=== PATIENT | male | born 1980 | race Caucasian/White ===

== ENCOUNTER 2017-03-27 17:04 | Emergency (ER) | payer OTHER ==
[~2017-03-27] VITALS: Ht 188 cm; Wt 99.8 kg
[~2017-03-27 17:04] MED LIST: ACET325; ACET325 PO; BACL10 PO; BISA10S PR; BUPR100 PO; BUPROPION HCL 100 MG PO; Baclofen10 MG PO; CHOL10002 PO; COPAXONE; CVS DISPOSABLE399 ML PR; Calcium + Vita1 EACH; Calcium 600 +1 EAC1 PO; Chloraseptic177 ML MM; Cipro500 MG PO; DIPH50 PO; DOCU100 PO; DOXY100T53 PO; DULO30 PO; ERGO50000 PO; FLUO10 PO; GAVILAX17 GM PO; GUAI600T33 PO; HYDR1TAB94 PO; Hair, Skin & N1 EACH PO; IBUP400 PO; IBUPROFEN200 MG PO; LMTHF-PYRIDOXI1 EACH PO; MECL25 PO; METAMUCIL PO; MIRALAX119 GM PO; MULVITB PO; Metamucil Smooth1 EA PO; Milk Of Ma400 MG/5 M; Milk Of Ma400 MG/5 M PO; NYST100TC TOP; NYSTRITC TOP; ONDA4 PO; ONDA4ODT MM; OSEL75CA PO; OXYB5 PO; PSYL5.85P PO; Senna8.6 MG PO; [UNRECOGNIZED DRUG - OTHER]; [UNRECOGNIZED DRUG - OTHER]
[2017-03-27] MEDS ORDERED: BISA10S PR (17:27)
[2017-03-27] MEDS ORDERED: Feverall650 MG PR (17:29)
[2017-03-27] MEDS ORDERED: 8HR ARTHRITIS650 M1 PO (17:39)
[2017-03-27] MEDS ORDERED: CHOL10002 PO (17:40)
[2017-03-27] MEDS ORDERED: FOLI1 PO (17:41)
[2017-03-27] MEDS ORDERED: XARELTO15 MG PO ×2 (19:11→19:16)
== END 2017-03-27 19:49 | disposition home or self-care (01) ==
LOC: ER 17:04
DX: I82.411 Acute embolism and thrombosis of right femoral vein (principal); I82.431 Acute embolism and thrombosis of right popliteal vein; I82.441 Acute embolism and thrombosis of right tibial vein; Z88.8 Allergy status to other drugs, medicaments and biological substances; Z88.5 Allergy status to narcotic agent; Z79.899 Other long term (current) drug therapy; Z79.2 Long term (current) use of antibiotics; F32.9 Major depressive disorder, single episode, unspecified; Z87.891 Personal history of nicotine dependence
CPT/HCPCS: 93971; 99284

== ENCOUNTER 2017-03-29 01:07 | Emergency (ER) | payer OTHER ==
[~2017-03-29] VITALS: Ht 185.4 cm; Wt 99.8 kg
[~2017-03-29 01:07] MED LIST changes: +8HR ARTHRITIS650 M1 PO; +FOLI1 PO; +Feverall650 MG PR; +XARELTO15 MG PO
== END 2017-03-29 01:19 | disposition home or self-care (01) ==
LOC: ER 01:07
DX: I82.411 Acute embolism and thrombosis of right femoral vein (principal); I82.431 Acute embolism and thrombosis of right popliteal vein; I82.441 Acute embolism and thrombosis of right tibial vein
CPT/HCPCS: 99283

== ENCOUNTER → 2017-06-24 | Outpatient (CLI) | payer OTHER ==
[~2017-06-24] MED LIST changes: -Chloraseptic177 ML MM; -GAVILAX17 GM PO; +LAVAP17G PO; +MILK OF MAGNESIA CON PO; -Metamucil Smooth1 EA PO; -Milk Of Ma400 MG/5 M PO; -ONDA4 PO; +ONDA4ODT; -OXYB5 PO; +OXYB5ER PO; +[UNRECOGNIZED DRUG - OTHER] PO
[2017-06-24 21:41] LABS: Bilirubin, Urine Neg (Neg); Blood, Urine 3+ (Neg); Glucose Qualitative, Urine Neg (Neg); Ketones, Urine Neg (Neg); Leukocyte Esterase, Urine 3+ (Neg); Nitrite, Urine Neg (Neg); Protein, Urine Neg (Neg); Urobilinogen, Urine NORM (Normal)
[2017-06-24 21:50] LABS: Color, Urine Pale Yellow (P-Yellow)
[2017-06-24 21:51] LABS: Amorphous Light (0-Heavy); Appearance, Urine Clear (Clear); Bacteria Few /hpf; Red Blood Cells, Urine Rare /hpf (0-2); Squamous Epithelial Cells Not Seen /hpf (Few)
== END ==
LOC: EDSTATUS 14:46 → LAB RH 21:28
PROVIDERS: Registered Nurse
DX: N39.0 Urinary tract infection, site not specified (principal)
CPT/HCPCS: 81001; 87086

== ENCOUNTER → 2017-07-02 | Outpatient (CLI) | payer OTHER ==
[2017-07-02 21:01] LABS: Source, Urine Clean Catch
[2017-07-02 21:12] LABS: Appearance, Urine Hazy (Clear); Bilirubin, Urine Neg (Neg); Blood, Urine 3+ (Neg); Color, Urine Pale Yellow (P-Yellow); Glucose Qualitative, Urine Neg (Neg); Ketones, Urine Neg (Neg); Leukocyte Esterase, Urine 3+ (Neg); Nitrite, Urine Pos (Neg); Protein, Urine Neg (Neg); Urobilinogen, Urine NORM (Normal)
[2017-07-02 21:13] LABS: Amorphous Light (0-Heavy); Bacteria Mod /hpf; Red Blood Cells, Urine 0-2 /hpf (0-2); Squamous Epithelial Cells Not Seen /hpf (Few)
== END ==
LOC: EDSTATUS 11:08 → LAB RH 20:59
PROVIDERS: Registered Nurse
DX: N39.0 Urinary tract infection, site not specified (principal)
CPT/HCPCS: 81001; 87086

== ENCOUNTER 2017-09-11 14:06 | Emergency (ER) | payer OTHER ==
[~2017-09-11] VITALS: Ht 185.4 cm; Wt 107.5 kg
[2017-09-11 15:32] LABS: International Normalized Ratio 3.13; Prothrombin Time Results 30.2 Sec (9.7-11.5)
== END 2017-09-11 17:40 | disposition home or self-care (01) ==
LOC: ER 14:06
PROVIDERS: Emergency Medicine
DX: S01.01XA Laceration without foreign body of scalp, initial encounter (principal); S50.02XA Contusion of left elbow, initial encounter; S50.01XA Contusion of right elbow, initial encounter; S80.02XA Contusion of left knee, initial encounter; S80.01XA Contusion of right knee, initial encounter; S00.83XA Contusion of other part of head, initial encounter; W17.89XA Other fall from one level to another, initial encounter; F32.9 Major depressive disorder, single episode, unspecified; Z87.891 Personal history of nicotine dependence; Z88.5 Allergy status to narcotic agent; Z88.8 Allergy status to other drugs, medicaments and biological substances; Z79.2 Long term (current) use of antibiotics; Z79.899 Other long term (current) drug therapy; Z79.891 Long term (current) use of opiate analgesic
CPT/HCPCS: 12002; 36415; 70450; 72125; 73610; 85610; 90471; 90714; 96374; 96375; 99284; J2060; J2405; J3010

== ENCOUNTER 2017-09-25 12:32 | Emergency (ER) | payer OTHER ==
[~2017-09-25] VITALS: Ht 185.4 cm; Wt 107.5 kg
[~2017-09-25 12:32] MED LIST changes: +Chloraseptic177 ML MM; +GAVILAX17 GM PO; -LAVAP17G PO; -MILK OF MAGNESIA CON PO; +Metamucil Smooth1 EA PO; +Milk Of Ma400 MG/5 M PO; +ONDA4 PO; -ONDA4ODT; +OXYB5 PO; -OXYB5ER PO; -[UNRECOGNIZED DRUG - OTHER] PO
[2017-09-25] MEDS ORDERED: CYAN500 PO (14:05)
[2017-09-25] MEDS ORDERED: PERIDEX15 ML MM (14:09)
[2017-09-25] MEDS ORDERED: GABA100 PO (14:15)
[2017-09-25] MEDS ORDERED: TOPICAINE 5113 GM TOP (14:19)
[2017-09-25] MEDS ORDERED: WARF6 PO (14:23)
[2017-09-25] MEDS ORDERED: Aspercreme He70.8 GM TOP (14:27)
[2017-09-25] MEDS ORDERED: NYSTATIN TOP (14:29)
[2017-09-25] MEDS ORDERED: NYSTRITC TOP (14:30)
[2017-09-25 15:09] LABS: BASOPHILS ABSOLUTE AUTO 0.07 K/mm3 (0.00-0.23); BASOPHILS PERCENT AUTO 1 % (0-2); EOSINOPHILS ABSOLUTE AUTO 0.18 K/mm3 (0.00-0.68); EOSINOPHILS PERCENT AUTO 2 % (0-6); Hematocrit 40.7 % (37.0-53.0); Hemoglobin 13.6 g/dL (13.5-17.5); IMMATURE GRAN ABSOLUTE AUTO 0.02 K/mm3 (0.00-0.10); IMMATURE GRAN PERCENT AUTO 0 % (0-1); LYMPHOCYTES ABSOLUTE AUTO 2.58 K/mm3 (0.84-5.20); LYMPHOCYTES PERCENT AUTO 31 % (21-46); MONOCYTES ABSOLUTE AUTO 0.53 K/mm3 (0.16-1.47); MONOCYTES PERCENT AUTO 6 % (4-13); Mean Corpuscular HGB 29.2 pg (26.0-34.0); Mean Corpuscular HGB Conc 33.4 g/dL (31.5-36.5); Mean Corpuscular Volume 88 fL (80-100); Mean Platelet Volume 9.6 fL (9.1-12.4); NEUTROPHILS ABSOLUTE AUTO 4.99 K/mm3 (1.96-9.15); NEUTROPHILS PERCENT AUTO 60 % (41-73); Platelet Count 348 K/mm3 (150-400); RDW Coefficient Variation 14.1 % (11.7-14.2); RDW Standard Deviation 45.1 fL (35.1-46.3); Red Blood Cell Count 4.65 M/mm3 (4.30-5.90); White Blood Cell Count 8.37 K/mm3 (4.00-11.30)
[2017-09-25 15:21] LABS: International Normalized Ratio 1.24; Prothrombin Time Results 12.6 Sec (9.7-11.5)
[2017-09-25 15:29] LABS: Alanine Aminotransfer (ALT/SGP 17 U/L (12-78); Albumin, Blood 3.2 g/dL (3.4-5.0); Albumin/Globulin Ratio 0.8 (0.8-1.8); Alk Phos 211 U/L (50-136); Anion Gap 8 mmol/L (6-16); Aspartate Aminotrans (AST/SGOT 15 U/L (12-37); Bilirubin, Total 0.6 mg/dL (0.1-1.0); Blood Urea Nitrogen 7 mg/dL (8-24); Bun/Creatinine Ratio 13.6 (12.0-20.0); CO2, Blood 29 mmol/L (21-32); Calcium, Blood 8.9 mg/dL (8.5-10.1); Chloride, Blood 106 mmol/L (98-108); Creatinine, Blood 0.52 mg/dL (0.60-1.20); Globulin, Blood 4.2 g/dL (2.2-4.0); Glomerular Filtration Rate >60 (60-); Glucose, Blood 83 mg/dL (70-99); Potassium, Blood 3.8 mmol/L (3.5-5.5); Sodium, Blood 143 mmol/L (136-145); Total Protein, Blood 7.4 g/dL (6.4-8.2)
[2017-09-25] MEDS ORDERED: Motion Sickness25 M5 PO (16:33)
== END 2017-09-25 19:57 | disposition home or self-care (01) ==
LOC: ER 12:32
PROVIDERS: Physician Assistant
DX: F07.81 Postconcussional syndrome (principal); H81.10 Benign paroxysmal vertigo, unspecified ear; F32.9 Major depressive disorder, single episode, unspecified; Z88.8 Allergy status to other drugs, medicaments and biological substances; Z88.5 Allergy status to narcotic agent; Z79.899 Other long term (current) drug therapy; Z87.891 Personal history of nicotine dependence
CPT/HCPCS: 36415; 70450; 80053; 85025; 85610; 99285-25

== ENCOUNTER 2018-07-02 17:58 | Emergency (ER) | payer OTHER ==
[~2018-07-02] VITALS: Ht 185.4 cm; Wt 104.3 kg
[~2018-07-02 17:58] MED LIST changes: +Aspercreme He70.8 GM TOP; +CYAN500 PO; +GABA100 PO; +Motion Sickness25 M5 PO; +NYSTATIN TOP; +PERIDEX15 ML MM; +TOPICAINE 5113 GM TOP; +WARF6 PO
[2018-07-02 19:15] LABS: BASOPHILS ABSOLUTE AUTO 0.04 K/mm3 (0.00-0.23); BASOPHILS PERCENT AUTO 1 % (0-2); EOSINOPHILS ABSOLUTE AUTO 0.09 K/mm3 (0.00-0.68); EOSINOPHILS PERCENT AUTO 1 % (0-6); Hematocrit 47.5 % (37.0-53.0); Hemoglobin 15.8 g/dL (13.5-17.5); IMMATURE GRAN ABSOLUTE AUTO 0.02 K/mm3 (0.00-0.10); IMMATURE GRAN PERCENT AUTO 0 % (0-1); LYMPHOCYTES ABSOLUTE AUTO 1.29 K/mm3 (0.84-5.20); LYMPHOCYTES PERCENT AUTO 20 % (21-46); MONOCYTES ABSOLUTE AUTO 0.69 K/mm3 (0.16-1.47); MONOCYTES PERCENT AUTO 11 % (4-13); Mean Corpuscular HGB 29.2 pg (26.0-34.0); Mean Corpuscular HGB Conc 33.3 g/dL (31.5-36.5); Mean Corpuscular Volume 88 fL (80-100); Mean Platelet Volume 10.4 fL (9.1-12.4); NEUTROPHILS ABSOLUTE AUTO 4.29 K/mm3 (1.96-9.15); NEUTROPHILS PERCENT AUTO 67 % (41-73); Platelet Count 248 K/mm3 (150-400); RDW Coefficient Variation 14.9 % (11.7-14.2); RDW Standard Deviation 47.8 fL (35.1-46.3); Red Blood Cell Count 5.42 M/mm3 (4.30-5.90); White Blood Cell Count 6.42 K/mm3 (4.00-11.30)
[2018-07-02] MEDS ORDERED: INULIN PO (19:20)
[2018-07-02] MEDS ORDERED: GAVILAX17 GM PO (19:21)
[2018-07-02] MEDS ORDERED: PROHEAL (19:22)
[2018-07-02] MEDS ORDERED: GABA300 PO (19:23)
[2018-07-02] MEDS ORDERED: BIOTENE PO (19:23)
[2018-07-02] MEDS ORDERED: CLOBET30L TOP (19:25)
[2018-07-02] MEDS ORDERED: GABA100 PO (19:26)
[2018-07-02] MEDS ORDERED: ACET325 PO (19:28)
[2018-07-02] MEDS ORDERED: WARF6 PO (19:29)
[2018-07-02 19:35] LABS: Alanine Aminotransfer (ALT/SGP 27 U/L (12-78); Albumin, Blood 3.2 g/dL (3.4-5.0); Albumin/Globulin Ratio 0.7 (0.8-1.8); Alk Phos 179 U/L (50-136); Anion Gap 5 mmol/L (6-16); Aspartate Aminotrans (AST/SGOT 28 U/L (12-37); Bilirubin, Total 0.3 mg/dL (0.1-1.0); Blood Urea Nitrogen 8 mg/dL (8-24); Bun/Creatinine Ratio 13.2 (12.0-20.0); CO2, Blood 30 mmol/L (21-32); Calcium, Blood 8.9 mg/dL (8.5-10.1); Chloride, Blood 101 mmol/L (98-108); Globulin, Blood 4.6 g/dL (2.2-4.0); Glomerular Filtration Rate >60 (60-); Glucose, Blood 97 mg/dL (70-99); Potassium, Blood 4.2 mmol/L (3.5-5.5); Sodium, Blood 136 mmol/L (136-145); Total Protein, Blood 7.8 g/dL (6.4-8.2)
[2018-07-02 19:41] LABS: Source, Urine Clean Catch
[2018-07-02 19:45] LABS: Appearance, Urine Cloudy (Clear); Bilirubin, Urine Neg (Neg); Blood, Urine 4+ (Neg); Color, Urine Yellow (P-Yellow); Glucose Qualitative, Urine Neg (Neg); Ketones, Urine 1+ (Neg); Leukocyte Esterase, Urine 3+ (Neg); Nitrite, Urine Pos (Neg); Protein, Urine 2+ (Neg); Urobilinogen, Urine NORM (Normal)
[2018-07-02 19:54] LABS: Bacteria Many /hpf; Squamous Epithelial Cells Not Seen /hpf (Few)
[2018-07-02 20:09] LABS: Influenza A Negative (NEGATIVE); Influenza B Negative (NEGATIVE)
[2018-07-02] MEDS ORDERED: Bactrim 400-801 EACH PO (20:15)
[2018-07-02] MEDS ORDERED: CEFD300 PO (20:15)
== END 2018-07-02 22:15 | disposition home or self-care (01) ==
LOC: ER 17:58
PROVIDERS: Emergency Medicine
DX: N39.0 Urinary tract infection, site not specified (principal); F32.9 Major depressive disorder, single episode, unspecified; G35 Multiple sclerosis; Z86.718 Personal history of other venous thrombosis and embolism; Z88.8 Allergy status to other drugs, medicaments and biological substances; Z79.899 Other long term (current) drug therapy; Z79.01 Long term (current) use of anticoagulants
CPT/HCPCS: 36415; 71045; 80053; 81001; 83605; 85025; 87086; 87804; 93005; 93010; 96361; 96365; 99284-25; J0692; J0696; J7030

== ENCOUNTER 2018-07-23 08:43 | Inpatient (IN) | payer OTHER ==
[~2018-07-23] VITALS: Ht 190.5 cm; Wt 104.8 kg
[~2018-07-23 08:43] MED LIST changes: -Aspercreme He70.8 GM TOP; +BENADRYL25 MG PO; +BIOTENE PO; -Baclofen10 MG PO; +Bactrim 400-801 EACH PO; +CEFD300 PO; +CLOBET30L TOP; -DIPH50 PO; +GABA300 PO; -GUAI600T33 PO; +METAMUCIL660 GM PO; +MUCOSA400 MG PO; -NYSTATIN TOP; +PROHEAL; +WARF3 PO
[2018-07-23 09:18] LABS: BASOPHILS ABSOLUTE AUTO 0.05 K/mm3 (0.00-0.23); BASOPHILS PERCENT AUTO 0 % (0-2); EOSINOPHILS ABSOLUTE AUTO 0.02 K/mm3 (0.00-0.68); EOSINOPHILS PERCENT AUTO 0 % (0-6); Hematocrit 53.2 % (37.0-53.0); Hemoglobin 17.4 g/dL (13.5-17.5); IMMATURE GRAN ABSOLUTE AUTO 0.06 K/mm3 (0.00-0.10); IMMATURE GRAN PERCENT AUTO 0 % (0-1); LYMPHOCYTES ABSOLUTE AUTO 1.36 K/mm3 (0.84-5.20); LYMPHOCYTES PERCENT AUTO 10 % (21-46); MONOCYTES ABSOLUTE AUTO 0.52 K/mm3 (0.16-1.47); MONOCYTES PERCENT AUTO 4 % (4-13); Mean Corpuscular HGB 28.9 pg (26.0-34.0); Mean Corpuscular HGB Conc 32.7 g/dL (31.5-36.5); Mean Corpuscular Volume 88 fL (80-100); Mean Platelet Volume 10.4 fL (9.1-12.4); NEUTROPHILS PERCENT AUTO 85 % (41-73); Platelet Count 310 K/mm3 (150-400); RDW Coefficient Variation 14.6 % (11.7-14.2); RDW Standard Deviation 46.8 fL (35.1-46.3); Red Blood Cell Count 6.03 M/mm3 (4.30-5.90); White Blood Cell Count 13.41 K/mm3 (4.00-11.30)
[2018-07-23 09:34] LABS: Alanine Aminotransfer (ALT/SGP 86 U/L (12-78); Albumin, Blood 3.2 g/dL (3.4-5.0); Albumin/Globulin Ratio 0.7 (0.8-1.8); Alk Phos 224 U/L (50-136); Anion Gap 6 mmol/L (6-16); Aspartate Aminotrans (AST/SGOT 160 U/L (12-37); Bilirubin, Total 1.2 mg/dL (0.1-1.0); Blood Urea Nitrogen 11 mg/dL (8-24); Bun/Creatinine Ratio 21.6 (12.0-20.0); CO2, Blood 22 mmol/L (21-32); Calcium, Blood 10.9 mg/dL (8.5-10.1); Chloride, Blood 104 mmol/L (98-108); Creatinine, Blood 0.51 mg/dL (0.60-1.20); Globulin, Blood 4.6 g/dL (2.2-4.0); Glomerular Filtration Rate >60 (60-); Glucose, Blood 104 mg/dL (70-99); Potassium, Blood 5.2 mmol/L (3.5-5.5); Sodium, Blood 132 mmol/L (136-145); Total Protein, Blood 7.8 g/dL (6.4-8.2)
[2018-07-23 09:37] LABS: PCO2 Arterial 45.7 mmHg (35-45); PO2 Arterial 143 mmHg (80-100); pH Blood Arterial 7.36 (7.35-7.45)
[2018-07-23 09:48] LABS: Source, Urine Urostomy Bag
[2018-07-23 10:07] LABS: Blood, Urine 2+ (Neg); Glucose Qualitative, Urine Neg (Neg); Ketones, Urine 2+ (Neg); Leukocyte Esterase, Urine 2+ (Neg); Nitrite, Urine Pos (Neg); Protein, Urine 3+ (Neg); Specific Gravity, Urine 1.025 (1.003-1.022); Urobilinogen, Urine 4+ (Normal)
[2018-07-23 10:24] LABS: Appearance, Urine Cloudy (Clear); Bilirubin, Urine 2+ (Neg); Color, Urine Amber (P-Yellow)
[2018-07-23 10:30] LABS: Bacteria Many /hpf; Squamous Epithelial Cells Not Seen /hpf (Few)
[2018-07-23 10:31] LABS: Amorphous Mod (0-Heavy); Uric Acid Crystals Few /hpf
[2018-07-23] MEDS ORDERED: VITAMIN D31000 UNIT PO (10:31)
[2018-07-23] MEDS ORDERED: Norco 5-325 Ta1 EACH PO (10:33)
[2018-07-23 10:39] LABS: U Amphetamine Screen Not Detected; U Barbituate Screen Not Detected; U Benzodiazapine Screen Not Detected; U Cocaine Screen Not Detected; U Methamphetamine Screen Not Detected
[2018-07-23 10:40] LABS: U Buprenorphine Screen Not Detected; U Cannabinoids Screen Not Detected; U Methadone Screen Not Detected; U Opiates Screen Not Detected; U Oxycodone Screen Not Detected; U Phencyclidine Screen Not Detected; U Propoxyphene Screen Not Detected
[2018-07-23 11:03] LABS: International Normalized Ratio 1.98; Prothrombin Time Results 19.7 Sec (9.7-11.5)
[2018-07-23] MEDS ORDERED: WARF6 PO (15:13)
[2018-07-23] MEDS ORDERED: Aspercreme He70.8 GM TOP (15:16)
[2018-07-23] MEDS ORDERED: NYSTRITC TOP (15:17)
[2018-07-23] MEDS ORDERED: NYSTATIN TOP (15:17)
[2018-07-23] MEDS ORDERED: BACL20 PO (15:18)
[2018-07-23] MEDS ORDERED: Artificial Tea1 EACH BOTHEYES (15:20)
[2018-07-23] MEDS ORDERED: MOTION RELIEF25 MG PO (15:23)
[2018-07-23] MEDS ORDERED: Triamcinolone A15 GM TOP (15:25)
[2018-07-23] MEDS ORDERED: ATHLETE'S FOO35.4 GM TOP (15:25)
--- NOTE | 2018-07-23 21:00 | NUR ---
ADMIT PT ARRIVED TO ICU 6 AT 1935 VIA ER BED. PT IS DROWSEY AND SPEECH IS SLURRED, BUT PT AROUSES TO VERBAL STIMULI. PT IS ALERT AND ORIENTED TO PLACE AND EVENT. PT WITH ADVANCED MS AND QUADRAPLEGIA. PT IS ABLE TO MOVE HEAD AND NECK ONLY. SENSATION INTACT THROUGHOUT. CONTRACTURES TO BILAT HANDS AND FEET NOTED. PT WITH NASAL TRUMPET IN PLACE WITH 4L O2 NC UPON ARRIVAL. PT WITH COPIOUS THICK ORAL SECRETIONS. ORAL CARE PERFORMED. PT WITH GAG PRESENT AND MINIMAL/VERY WEAK COUGH. PT QUICKLY FALLS BACK TO SLEEP WITH SNORING RESPIRATIONS. PT TOLERATING NASAL TRUMPET WELL, WILL LEAVE IN PLACE AT THIS TIME. VITAL SIGNS STABLE, SPO2 >94%. 22G IV IN R FOOT INFUSING UPON ARRIVAL. 20G IV TO RAC ESTABLISHED AT THIS TIME, NS INFUSING AT 200 ML/HR. PT WITH SUPRA PUBIC CULLEN IN PLACE DRAINING DARK CARLOS. WILL CONTINUE TO MONITOR.
[2018-07-24 04:40] LABS: BASOPHILS ABSOLUTE AUTO 0.04 K/mm3 (0.00-0.23); BASOPHILS PERCENT AUTO 0 % (0-2); EOSINOPHILS ABSOLUTE AUTO 0.07 K/mm3 (0.00-0.68); EOSINOPHILS PERCENT AUTO 0 % (0-6); Hematocrit 47.3 % (37.0-53.0); Hemoglobin 15.5 g/dL (13.5-17.5); IMMATURE GRAN ABSOLUTE AUTO 0.07 K/mm3 (0.00-0.10); IMMATURE GRAN PERCENT AUTO 0 % (0-1); LYMPHOCYTES PERCENT AUTO 11 % (21-46); MONOCYTES ABSOLUTE AUTO 1.39 K/mm3 (0.16-1.47); MONOCYTES PERCENT AUTO 8 % (4-13); Mean Corpuscular HGB 29.1 pg (26.0-34.0); Mean Corpuscular HGB Conc 32.8 g/dL (31.5-36.5); Mean Corpuscular Volume 89 fL (80-100); Mean Platelet Volume 10.4 fL (9.1-12.4); NEUTROPHILS ABSOLUTE AUTO 13.84 K/mm3 (1.96-9.15); NEUTROPHILS PERCENT AUTO 80 % (41-73); Platelet Count 345 K/mm3 (150-400); RDW Coefficient Variation 14.6 % (11.7-14.2); RDW Standard Deviation 47.6 fL (35.1-46.3); Red Blood Cell Count 5.32 M/mm3 (4.30-5.90); White Blood Cell Count 17.21 K/mm3 (4.00-11.30)
[2018-07-24 05:00] LABS: Alanine Aminotransfer (ALT/SGP 68 U/L (12-78); Albumin/Globulin Ratio 0.7 (0.8-1.8); Alk Phos 167 U/L (50-136); Anion Gap 7 mmol/L (6-16); Aspartate Aminotrans (AST/SGOT 48 U/L (12-37); Bilirubin, Total 0.5 mg/dL (0.1-1.0); Blood Urea Nitrogen 9 mg/dL (8-24); Bun/Creatinine Ratio 14.3 (12.0-20.0); CO2, Blood 27 mmol/L (21-32); Calcium, Blood 9.1 mg/dL (8.5-10.1); Chloride, Blood 105 mmol/L (98-108); Creatinine, Blood 0.63 mg/dL (0.60-1.20); Globulin, Blood 4.3 g/dL (2.2-4.0); Glomerular Filtration Rate >60 (60-); Glucose, Blood 96 mg/dL (70-99); Potassium, Blood 4.2 mmol/L (3.5-5.5); Sodium, Blood 139 mmol/L (136-145); Total Protein, Blood 7.3 g/dL (6.4-8.2)
[2018-07-24 05:41] LABS: Source, Urine Catheter
[2018-07-24 05:44] LABS: Blood, Urine 5+ (Neg); Glucose Qualitative, Urine Neg (Neg); Ketones, Urine 4+ (Neg); Leukocyte Esterase, Urine 1+ (Neg); Nitrite, Urine Pos (Neg); Protein, Urine 2+ (Neg); Urobilinogen, Urine 1+ (Normal)
[2018-07-24 05:51] LABS: Bilirubin, Urine 1+ (Neg)
[2018-07-24 05:53] LABS: Appearance, Urine Hazy (Clear); Color, Urine Amber (P-Yellow)
[2018-07-24 05:57] LABS: Amorphous Mod (0-Heavy); Bacteria Mod /hpf; Hyaline Casts 0-2 /lpf (0-2); Red Blood Cells, Urine 25-50 /hpf (0-2); Squamous Epithelial Cells Not Seen /hpf (Few)
--- NOTE | 2018-07-24 06:02 | NUR ---
SHIFT SUMMARY NO ACUTE CHANGES THIS SHIFT. PT HAS REMAINED ALERT AND ORIENTED WHEN AWAKE. PT SPEECH REMAINS SLURRED/MUMBLED. NO CHANGES TO SENSATION OR MOVEMENT OF EXTREMITIES. NASAL TRUMPET REMAINS IN PLACE WITH O2 NC TITRATED DOWN TO 2L. VITAL SIGNS HAVE REMAINED STABLE. NS INFUSING AT 150 ML/HR. SUPRA PUBIC CATHETER REPLACED WITH NEW ONE, UA SENT. PT REQUIRING FREQUENT ORAL SUCTION. WILL CONTINUE TO MONITOR AND REPORT OFF TO ONCOMING RN.
--- NOTE | 2018-07-24 08:00 | NUR ---
Recieved report from Lucas ZHU. Patient on right side with HOB at >30 degrees. He is alert and oriented and speech slurred at low tones and is understandable. He is on 2L O2 via NC and has NPA in right nares and sats 98%. Placed and RA to wean off O2 and will reevaluate. He has supra pubic cath on LQ dressing C/D/I and draining to gravity. He has 22ga IV in right foot and is flushed and SL'd. He also has 18ga IV in LFA dressing intact and site WNL's and is infusing NS at 150ml/hr. He has yesy sense of humar and is appropriate with care.
[2018-07-24 08:51] LABS: International Normalized Ratio 4.91
--- NOTE | 2018-07-24 09:30 | NUR ---
Patient tolerated am meds in chocolate pudding with no signs of aspiration. He request constant positioning of extremities for comfort. He contimues on RA and sast remain in the upper 90%.. Dr Sheffield by and has made Medical floor status when bed available.
--- NOTE | 2018-07-24 11:48 | NUR ---
Gave report to Efe on Med floor and patient transfered to [facility] via ICU bed. Fluids were sent and all personal belongings.
--- NOTE | 2018-07-24 17:41 | NUR ---
SUMMARY PT RESTING QUIETLY IN BED, WAS TRANSFERRED UP FROM ICU, AWAKE, ALERT AND ORIENTED, ANSWERS QUESTIONS APPROPRIATELY, PT REPORTS BEING ABLE TO FEEL ALL HIS EXTREMETIES, BUT CANNOT MOVE THEM, PT GIVEN A BREATH CALL LIGHT, PT ABLE TO TAKE MEDS CRUSHED IN APPLESAUCE, VSS, NO ACUTE CHANGES, WILL CONT TO MONITOR
[2018-07-25 08:44] LABS: BASOPHILS ABSOLUTE AUTO 0.04 K/mm3 (0.00-0.23); BASOPHILS PERCENT AUTO 1 % (0-2); EOSINOPHILS ABSOLUTE AUTO 0.12 K/mm3 (0.00-0.68); EOSINOPHILS PERCENT AUTO 1 % (0-6); Hematocrit 37.9 % (37.0-53.0); Hemoglobin 12.6 g/dL (13.5-17.5); IMMATURE GRAN ABSOLUTE AUTO 0.02 K/mm3 (0.00-0.10); IMMATURE GRAN PERCENT AUTO 0 % (0-1); LYMPHOCYTES ABSOLUTE AUTO 2.71 K/mm3 (0.84-5.20); LYMPHOCYTES PERCENT AUTO 33 % (21-46); MONOCYTES ABSOLUTE AUTO 0.76 K/mm3 (0.16-1.47); MONOCYTES PERCENT AUTO 9 % (4-13); Mean Corpuscular HGB 29.1 pg (26.0-34.0); Mean Corpuscular HGB Conc 33.2 g/dL (31.5-36.5); Mean Corpuscular Volume 88 fL (80-100); Mean Platelet Volume 10.6 fL (9.1-12.4); NEUTROPHILS ABSOLUTE AUTO 4.63 K/mm3 (1.96-9.15); NEUTROPHILS PERCENT AUTO 56 % (41-73); Platelet Count 261 K/mm3 (150-400); RDW Coefficient Variation 14.9 % (11.7-14.2); RDW Standard Deviation 47.8 fL (35.1-46.3); Red Blood Cell Count 4.33 M/mm3 (4.30-5.90); White Blood Cell Count 8.28 K/mm3 (4.00-11.30)
--- NOTE | 2018-07-25 08:56 | NUR ---
38 year old male with advanced MS with improved LOC. Neg S/SX of etoh WD
[2018-07-25 09:01] LABS: International Normalized Ratio 3.3; Prothrombin Time Results 31.4 Sec (9.7-11.5)
--- NOTE | 2018-07-25 11:48 | NUR ---
PT MOVED TO [facility] BED.
--- NOTE | 2018-07-25 18:01 | NUR ---
SHIFT SUMMARY. A&OX3, PLEASANT, QUADREPLEGIC. PT DENIES PAIN, SOB. PT REPORTED NAUSEA, RECIEVED ORDERS FOR ZOFRAN OTD WHICH PROVIDED GOOD RELIEF. PT CHANGED TO AIR [facility] BED VIA CELING LIFT. PT WITH TOW POSITIVE BLOOD CULTURES, DR. CASTILLO AWARE, SECOND SET OF BLODD CULTURES DRAWN, PT IS ASYMPTOMATIC, DR. CASTILLO REPORTS THAT HE WILL HOLD OFF ONTHE ANTIBIOTICS AT THIS TIME AND CONTINUE TO MONITOR.
[2018-07-26 05:38] LABS: BASOPHILS ABSOLUTE AUTO 0.04 K/mm3 (0.00-0.23); BASOPHILS PERCENT AUTO 1 % (0-2); EOSINOPHILS ABSOLUTE AUTO 0.09 K/mm3 (0.00-0.68); EOSINOPHILS PERCENT AUTO 1 % (0-6); Hematocrit 40.4 % (37.0-53.0); Hemoglobin 13.4 g/dL (13.5-17.5); IMMATURE GRAN ABSOLUTE AUTO 0.02 K/mm3 (0.00-0.10); IMMATURE GRAN PERCENT AUTO 0 % (0-1); LYMPHOCYTES PERCENT AUTO 33 % (21-46); MONOCYTES ABSOLUTE AUTO 0.78 K/mm3 (0.16-1.47); MONOCYTES PERCENT AUTO 10 % (4-13); Mean Corpuscular HGB 29.1 pg (26.0-34.0); Mean Corpuscular HGB Conc 33.2 g/dL (31.5-36.5); Mean Corpuscular Volume 88 fL (80-100); Mean Platelet Volume 10.5 fL (9.1-12.4); NEUTROPHILS ABSOLUTE AUTO 4.24 K/mm3 (1.96-9.15); NEUTROPHILS PERCENT AUTO 55 % (41-73); Platelet Count 276 K/mm3 (150-400); RDW Coefficient Variation 14.6 % (11.7-14.2); White Blood Cell Count 7.67 K/mm3 (4.00-11.30)
[2018-07-26 06:00] LABS: Anion Gap 6 mmol/L (6-16); Blood Urea Nitrogen 5 mg/dL (8-24); Bun/Creatinine Ratio 10.7 (12.0-20.0); CO2, Blood 28 mmol/L (21-32); Calcium, Blood 8.6 mg/dL (8.5-10.1); Chloride, Blood 105 mmol/L (98-108); Creatinine, Blood 0.47 mg/dL (0.60-1.20); Glomerular Filtration Rate >60 (60-); Glucose, Blood 92 mg/dL (70-99); Potassium, Blood 3.6 mmol/L (3.5-5.5); Sodium, Blood 139 mmol/L (136-145)
--- NOTE | 2018-07-26 06:46 | NUR ---
PT CONTINUES WITH QUADRAPLEGIA FROM MS AND CONTINUES WITH SP CATH DUE TO NEUROGENIC BLADDER. TOTALLY DEPENDENT FOR ALL ADLS TOILETING AND FEEDING. NEDICATED X 1 WITH ORAL ZOFRAN FOR CO NAUSEA. ASPIRATION PRECAUTIONS CONTINUE
--- NOTE | 2018-07-26 18:11 | NUR ---
DISCHARGE DISCHARGED BACK TO [facility] VIA [facility], REPORT CALLED TO LEIGHTON ZHU, QUESTIONS AND CONCERNS ANSWERED.
== END 2018-07-26 17:53 | DRG 56 ==
LOC: ER 08:43 → ICUW 16:04 → ICUE 16:04 → MEDS 16:04 → ICUE 19:59 → MEDS 07-24 11:19
PROVIDERS: Emergency Medicine; Family Medicine; ADMIT Hospitalist
DX: G31.2 Degeneration of nervous system due to alcohol (principal); R53.2 Functional quadriplegia; E87.1 Hypo-osmolality and hyponatremia; R65.10 Systemic inflammatory response syndrome (SIRS) of non-infectious origin without acute organ dysfunction; F10.929 Alcohol use, unspecified with intoxication, unspecified; G35 Multiple sclerosis; E86.0 Dehydration; D72.829 Elevated white blood cell count, unspecified; E86.1 Hypovolemia
CPT/HCPCS: 36415; 36600; 70450; 70553; 71045; 76705; 80048; 80053; 81001; 82140; 82803; 85025; 85610; 85730; 87040; 87077; 87086; 87186; 93005; 93010; 96361; 96365-59; 96375-59; 96376-59; 99285-25; A9577; J1650; J2185; J2310; J2543; J3370; J7030; J7050

== ENCOUNTER → 2019-01-25 | Outpatient (CLI) | payer OTHER ==
[~2019-01-25] MED LIST changes: +ATHLETE'S FOO35.4 GM TOP; +Artificial Tea1 EACH BOTHEYES; +Aspercreme He70.8 GM TOP; +BACL20 PO; +MOTION RELIEF25 MG PO; +NYSTATIN TOP; +Norco 5-325 Ta1 EACH PO; +Triamcinolone A15 GM TOP; +VITAMIN D31000 UNIT PO
[2019-01-25 21:15] LABS: Bilirubin, Urine Neg (Neg); Blood, Urine 4+ (Neg); Glucose Qualitative, Urine Neg (Neg); Ketones, Urine Neg (Neg); Leukocyte Esterase, Urine 3+ (Neg); Nitrite, Urine Neg (Neg); Protein, Urine 1+ (Neg); Specific Gravity, Urine 1.015 (1.003-1.022); Urobilinogen, Urine NORM (Normal)
[2019-01-25 21:21] LABS: Appearance, Urine Hazy (Clear); Color, Urine Yellow (P-Yellow)
[2019-01-25 21:24] LABS: Bacteria Mod /hpf; Squamous Epithelial Cells Not Seen /hpf (Few)
== END | disposition home or self-care (01) ==
LOC: EDSTATUS 12:33 → LAB RH 20:10
DX: N39.0 Urinary tract infection, site not specified (principal)
CPT/HCPCS: 81001; 87077; 87086; 87186

== ENCOUNTER 2019-02-07 22:13 | Emergency (ER) | payer OTHER ==
[~2019-02-07] VITALS: Ht 185.4 cm; Wt 113.4 kg
[2019-02-07 23:45] LABS: BASOPHILS ABSOLUTE AUTO 0.04 K/mm3 (0.00-0.23); BASOPHILS PERCENT AUTO 1 % (0-2); EOSINOPHILS ABSOLUTE AUTO 0.14 K/mm3 (0.00-0.68); EOSINOPHILS PERCENT AUTO 2 % (0-6); Hematocrit 46.9 % (37.0-53.0); Hemoglobin 15.5 g/dL (13.5-17.5); IMMATURE GRAN ABSOLUTE AUTO 0.02 K/mm3 (0.00-0.10); IMMATURE GRAN PERCENT AUTO 0 % (0-1); LYMPHOCYTES ABSOLUTE AUTO 2.77 K/mm3 (0.84-5.20); LYMPHOCYTES PERCENT AUTO 39 % (21-46); MONOCYTES PERCENT AUTO 7 % (4-13); Mean Corpuscular HGB 29.1 pg (26.0-34.0); Mean Corpuscular Volume 88 fL (80-100); Mean Platelet Volume 9.9 fL (9.1-12.4); NEUTROPHILS ABSOLUTE AUTO 3.63 K/mm3 (1.96-9.15); NEUTROPHILS PERCENT AUTO 51 % (41-73); Platelet Count 273 K/mm3 (150-400); RDW Coefficient Variation 14.6 % (11.7-14.2); RDW Standard Deviation 47.6 fL (35.1-46.3); Red Blood Cell Count 5.33 M/mm3 (4.30-5.90)
[2019-02-08 00:04] LABS: Alanine Aminotransfer (ALT/SGP 22 U/L (12-78); Albumin, Blood 3.5 g/dL (3.4-5.0); Albumin/Globulin Ratio 0.8 (0.8-1.8); Alk Phos 114 U/L (50-136); Anion Gap 6 mmol/L (6-16); Aspartate Aminotrans (AST/SGOT 14 U/L (12-37); Bilirubin, Total 0.2 mg/dL (0.1-1.0); Blood Urea Nitrogen 9 mg/dL (8-24); Bun/Creatinine Ratio 16.3 (12.0-20.0); CO2, Blood 29 mmol/L (21-32); Calcium, Blood 9.3 mg/dL (8.5-10.1); Chloride, Blood 104 mmol/L (98-108); Creatinine, Blood 0.55 mg/dL (0.60-1.20); Globulin, Blood 4.4 g/dL (2.2-4.0); Glomerular Filtration Rate >60 (60-); Glucose, Blood 92 mg/dL (70-99); Potassium, Blood 3.8 mmol/L (3.5-5.5); Sodium, Blood 139 mmol/L (136-145); Total Protein, Blood 7.9 g/dL (6.4-8.2); Troponin I <0.015 ng/mL (0.000-0.040)
== END 2019-02-08 00:50 | disposition home or self-care (01) ==
LOC: ER 22:13
PROVIDERS: Emergency Medicine
DX: R07.89 Other chest pain (principal); I82.402 Acute embolism and thrombosis of unspecified deep veins of left lower extremity; F32.9 Major depressive disorder, single episode, unspecified; G35 Multiple sclerosis; Z87.891 Personal history of nicotine dependence; Z91.048 Other nonmedicinal substance allergy status; Z88.8 Allergy status to other drugs, medicaments and biological substances; Z79.899 Other long term (current) drug therapy; Z79.891 Long term (current) use of opiate analgesic; Z79.01 Long term (current) use of anticoagulants
CPT/HCPCS: 71045; 80053; 84484; 85025; 93005; 93010; 99285-25; J1885

== ENCOUNTER → 2019-04-07 | Outpatient (CLI) | payer OTHER ==
[2019-04-07 10:20] LABS: International Normalized Ratio 1.65; Prothrombin Time Results 17.2 Sec (9.7-11.5)
== END | disposition home or self-care (01) ==
LOC: LAB RH 08:08 → EDSTATUS 13:24
DX: I82.401 Acute embolism and thrombosis of unspecified deep veins of right lower extremity (principal); N39.0 Urinary tract infection, site not specified
CPT/HCPCS: 36415; 85610

== ENCOUNTER → 2019-04-08 | Outpatient (CLI) | payer OTHER ==
[2019-04-08 10:06] LABS: Hematocrit 43.3 % (37.0-53.0); Hemoglobin 13.9 g/dL (13.5-17.5); Mean Corpuscular HGB 28.3 pg (26.0-34.0); Mean Corpuscular HGB Conc 32.1 g/dL (31.5-36.5); Mean Corpuscular Volume 88 fL (80-100); Mean Platelet Volume 10.6 fL (9.1-12.4); Platelet Count 287 K/mm3 (150-400); RDW Coefficient Variation 14.6 % (11.7-14.2); RDW Standard Deviation 47.1 fL (35.1-46.3); Red Blood Cell Count 4.92 M/mm3 (4.30-5.90); White Blood Cell Count 7.61 K/mm3 (4.00-11.30)
[2019-04-08 10:28] LABS: Alanine Aminotransfer (ALT/SGP 20 U/L (12-78); Albumin, Blood 3.2 g/dL (3.4-5.0); Albumin/Globulin Ratio 0.8 (0.8-1.8); Alk Phos 119 U/L (50-136); Anion Gap 4 mmol/L (6-16); Aspartate Aminotrans (AST/SGOT 11 U/L (12-37); Bilirubin, Total 0.6 mg/dL (0.1-1.0); Blood Urea Nitrogen 7 mg/dL (8-24); Bun/Creatinine Ratio 13.2 (12.0-20.0); CO2, Blood 31 mmol/L (21-32); Calcium, Blood 9.1 mg/dL (8.5-10.1); Chloride, Blood 105 mmol/L (98-108); Creatinine, Blood 0.53 mg/dL (0.60-1.20); Globulin, Blood 3.9 g/dL (2.2-4.0); Glomerular Filtration Rate >60 (60-); Glucose, Blood 75 mg/dL (70-99); Potassium, Blood 3.6 mmol/L (3.5-5.5); Sodium, Blood 140 mmol/L (136-145); Total Protein, Blood 7.1 g/dL (6.4-8.2)
== END | disposition home or self-care (01) ==
LOC: LAB RH 08:09 → EDSTATUS 13:26
DX: N39.0 Urinary tract infection, site not specified (principal); I82.401 Acute embolism and thrombosis of unspecified deep veins of right lower extremity
CPT/HCPCS: 36415; 80053; 85027

== ENCOUNTER → 2019-04-14 | Outpatient (CLI) | payer OTHER ==
[2019-04-14 10:28] LABS: International Normalized Ratio 1.89; Prothrombin Time Results 19.5 Sec (9.7-11.5)
== END | disposition home or self-care (01) ==
LOC: LAB RH 08:10 → EDSTATUS 13:27
DX: I82.401 Acute embolism and thrombosis of unspecified deep veins of right lower extremity (principal)
CPT/HCPCS: 36415; 85610

== ENCOUNTER → 2019-04-21 | Outpatient (CLI) | payer OTHER ==
[2019-04-21 10:22] LABS: International Normalized Ratio 2.44; Prothrombin Time Results 24.8 Sec (9.7-11.5)
== END | disposition home or self-care (01) ==
LOC: LAB RH 08:27 → EDSTATUS 15:22 → LAB RH 15:23
DX: Z51.81 Encounter for therapeutic drug level monitoring (principal); Z79.1 Long term (current) use of non-steroidal anti-inflammatories (NSAID)
CPT/HCPCS: 36415; 85610

== ENCOUNTER → 2019-04-28 | Outpatient (CLI) | payer OTHER ==
[2019-04-28 10:47] LABS: International Normalized Ratio 3.92; Prothrombin Time Results 38.8 Sec (9.7-11.5)
== END | disposition home or self-care (01) ==
LOC: LAB RH 08:42 → EDSTATUS 12:11
PROVIDERS: Family Medicine
DX: I82.401 Acute embolism and thrombosis of unspecified deep veins of right lower extremity (principal)
CPT/HCPCS: 36415; 85610

== ENCOUNTER → 2019-05-05 | Outpatient (CLI) | payer OTHER ==
[2019-05-05 11:26] LABS: International Normalized Ratio 1.29; Prothrombin Time Results 13.6 Sec (9.7-11.5)
== END | disposition home or self-care (01) ==
LOC: LAB RH 09:49 → EDSTATUS 12:12
PROVIDERS: Family Medicine
DX: I82.409 Acute embolism and thrombosis of unspecified deep veins of unspecified lower extremity (principal)
CPT/HCPCS: 36415; 85610

== ENCOUNTER → 2020-08-26 | Outpatient (CLI) | payer OTHER ==
[2020-08-26 21:26] LABS: BASOPHILS ABSOLUTE AUTO 0.05 K/mm3 (0.00-0.23); BASOPHILS PERCENT AUTO 1 % (0-2); EOSINOPHILS ABSOLUTE AUTO 0.13 K/mm3 (0.00-0.68); EOSINOPHILS PERCENT AUTO 2 % (0-6); Hematocrit 43.9 % (37.0-53.0); Hemoglobin 14.9 g/dL (13.5-17.5); IMMATURE GRAN ABSOLUTE AUTO 0.04 K/mm3 (0.00-0.10); IMMATURE GRAN PERCENT AUTO 1 % (0-1); LYMPHOCYTES ABSOLUTE AUTO 2.37 K/mm3 (0.84-5.20); LYMPHOCYTES PERCENT AUTO 31 % (21-46); MONOCYTES ABSOLUTE AUTO 0.61 K/mm3 (0.16-1.47); MONOCYTES PERCENT AUTO 8 % (4-13); Mean Corpuscular HGB 30.3 pg (26.0-34.0); Mean Corpuscular HGB Conc 33.9 g/dL (31.5-36.5); Mean Corpuscular Volume 89 fL (80-100); Mean Platelet Volume 10.2 fL (9.1-12.4); NEUTROPHILS ABSOLUTE AUTO 4.38 K/mm3 (1.96-9.15); NEUTROPHILS PERCENT AUTO 58 % (41-73); Platelet Count 283 K/mm3 (150-400); RDW Coefficient Variation 13.5 % (11.7-14.2); RDW Standard Deviation 44.1 fL (35.1-46.3); Red Blood Cell Count 4.92 M/mm3 (4.30-5.90); White Blood Cell Count 7.58 K/mm3 (4.00-11.30)
[2020-08-26 21:45] LABS: Alanine Aminotransfer (ALT/SGP 22 U/L (12-78); Albumin, Blood 3.1 g/dL (3.4-5.0); Albumin/Globulin Ratio 0.8 (0.8-1.8); Alk Phos 143 U/L (50-136); Anion Gap 5 mmol/L (6-16); Aspartate Aminotrans (AST/SGOT 12 U/L (12-37); Bilirubin, Total 0.3 mg/dL (0.1-1.0); Blood Urea Nitrogen 8 mg/dL (8-24); CO2, Blood 26 mmol/L (21-32); Calcium, Blood 8.5 mg/dL (8.5-10.1); Chloride, Blood 105 mmol/L (98-108); Creatinine, Blood 0.61 mg/dL (0.60-1.20); Glomerular Filtration Rate >60 (60-); Glucose, Blood 104 mg/dL (70-99); Potassium, Blood 3.7 mmol/L (3.5-5.5); Sodium, Blood 136 mmol/L (136-145); Total Protein, Blood 7.1 g/dL (6.4-8.2)
== END ==
LOC: EDSTATUS 09:58 → LAB RH 21:20
PROVIDERS: Internal Medicine
DX: I82.401 Acute embolism and thrombosis of unspecified deep veins of right lower extremity (principal); G35 Multiple sclerosis; Z88.5 Allergy status to narcotic agent; Z88.8 Allergy status to other drugs, medicaments and biological substances; Z91.048 Other nonmedicinal substance allergy status
CPT/HCPCS: 80053; 85025

== ENCOUNTER → 2020-11-05 | Outpatient (CLI) | payer OTHER ==
[2020-11-06 15:57] LABS: CORONAVIRUS (COVID19) CSH-NRL Negative (Negative)
== END | disposition home or self-care (01) ==
LOC: EDSTATUS 09:40 → LAB RH 12:51
PROVIDERS: Internal Medicine
DX: U07.1 COVID-19 (principal)
CPT/HCPCS: U0003

== ENCOUNTER → 2021-08-05 | Outpatient (CLI) | payer OTHER | END | disposition home or self-care (01) | LOC: LAB RH 07:30 → EDSTATUS 15:17 | DX: R89.5 Abnormal microbiological findings in specimens from other organs, systems and tissues (principal) | CPT/HCPCS: 87070; 87075; 87077; 87147; 87186; 87205 ==

== ENCOUNTER → 2021-08-26 | Outpatient (CLI) | payer OTHER ==
[2021-08-26 15:22] LABS: Hemoglobin 16.9 g/dL (13.5-17.5); Mean Corpuscular HGB 29.6 pg (26.0-34.0); Mean Corpuscular HGB Conc 33.8 g/dL (31.5-36.5); Mean Corpuscular Volume 88 fL (80-100); Mean Platelet Volume 10.7 fL (9.1-12.4); Platelet Count 271 K/mm3 (150-400); RDW Coefficient Variation 14.6 % (11.7-14.2); RDW Standard Deviation 46.8 fL (35.1-46.3); White Blood Cell Count 6.08 K/mm3 (4.00-11.30)
[2021-08-26 15:32] LABS: Bun/Creatinine Ratio 22.9 (12.0-20.0); Calcium, Blood 9.2 mg/dL (8.5-10.1); Creatinine, Blood 0.53 mg/dL (0.60-1.20); Potassium, Blood 4.1 mmol/L (3.5-5.5)
== END | disposition home or self-care (01) ==
LOC: EDSTATUS 13:59 → LAB RH 14:21 → LAB UVN 14:21
PROVIDERS: Internal Medicine
DX: G35 Multiple sclerosis (principal); R53.81 Other malaise; R79.89 Other specified abnormal findings of blood chemistry
CPT/HCPCS: 80048; 85027

== ENCOUNTER 2022-02-20 14:24 | Emergency (ER) | payer OTHER ==
[~2022-02-20] VITALS: Ht 175.3 cm; Wt 113.4 kg
[2022-02-20] MEDS ORDERED: ELIQUIS5 M2 PO (15:10)
[2022-02-20] MEDS ORDERED: FURO40 PO (15:11)
[2022-02-20] MEDS ORDERED: PREG75 PO (15:12)
[2022-02-20] MEDS ORDERED: KLOR-CON 1010 ME2 PO (15:14)
[2022-02-20 16:28] LABS: BASOPHILS ABSOLUTE AUTO 0.05 K/mm3 (0.00-0.23); BASOPHILS PERCENT AUTO 1 % (0-2); EOSINOPHILS ABSOLUTE AUTO 0.23 K/mm3 (0.00-0.68); EOSINOPHILS PERCENT AUTO 3 % (0-6); Hematocrit 44.1 % (37.0-53.0); Hemoglobin 15.6 g/dL (13.5-17.5); IMMATURE GRAN ABSOLUTE AUTO 0.07 K/mm3 (0.00-0.10); IMMATURE GRAN PERCENT AUTO 1 % (0-1); LYMPHOCYTES ABSOLUTE AUTO 2.07 K/mm3 (0.84-5.20); LYMPHOCYTES PERCENT AUTO 25 % (21-46); MONOCYTES ABSOLUTE AUTO 0.68 K/mm3 (0.16-1.47); MONOCYTES PERCENT AUTO 8 % (4-13); Mean Corpuscular HGB 29.2 pg (26.0-34.0); Mean Corpuscular HGB Conc 35.4 g/dL (31.5-36.5); Mean Corpuscular Volume 83 fL (80-100); Mean Platelet Volume 9.7 fL (9.1-12.4); NEUTROPHILS ABSOLUTE AUTO 5.12 K/mm3 (1.96-9.15); NEUTROPHILS PERCENT AUTO 62 % (41-73); Platelet Count 378 K/mm3 (150-400); RDW Standard Deviation 44.3 fL (35.1-46.3); Red Blood Cell Count 5.34 M/mm3 (4.30-5.90); White Blood Cell Count 8.22 K/mm3 (4.00-11.30)
[2022-02-20 16:47] LABS: Albumin, Blood 2.9 g/dL (3.4-5.0); Albumin/Globulin Ratio 0.6 (0.8-1.8); Bilirubin, Total 0.9 mg/dL (0.1-1.0); Bun/Creatinine Ratio 4.2 (12.0-20.0); Calcium, Blood 8.8 mg/dL (8.5-10.1); Creatinine, Blood 0.47 mg/dL (0.60-1.20); Globulin, Blood 4.6 g/dL (2.2-4.0); Potassium, Blood 2.8 mmol/L (3.5-5.5); Total Protein, Blood 7.5 g/dL (6.4-8.2)
[2022-02-20] MEDS ORDERED: K-Dur20 MEQ PO (18:04)
[2022-02-20] MEDS ORDERED: MINERAL OIL133 M1 PR (19:53)
== END 2022-02-20 20:50 | disposition home or self-care (01) ==
LOC: ER 14:24
PROVIDERS: Emergency Medicine
DX: K59.00 Constipation, unspecified (principal); Z88.6 Allergy status to analgesic agent; Z88.8 Allergy status to other drugs, medicaments and biological substances; Z91.048 Other nonmedicinal substance allergy status; Z79.899 Other long term (current) drug therapy; Z87.891 Personal history of nicotine dependence
CPT/HCPCS: 36415; 71045; 74177; 80053; 83735; 85025; A9270; J3475; Q9967

== ENCOUNTER 2022-08-22 01:11 | Emergency (ER) | payer OTHER ==
[~2022-08-22] VITALS: Ht 167.6 cm; Wt 68.0 kg
[~2022-08-22 01:11] MED LIST changes: +B-12500 MC2 PO; +CARB10OTL BOTHEARS; +CLOTRIMAZOLE AF1524 TOP; +DULCOLAX400 MG/5 M PO; +ELIQUIS5 M2 PO; +FURO40 PO; +Fleet Enema132 ML PR; +K-Dur20 MEQ PO; +KLOR-CON 1010 ME1 PO; +KLOR-CON 1010 ME2 PO; +LACT10SY PO; +LAVAP4L PO; +MINERAL OIL133 M1 PR; +MIRALAX17 GM PO; -Milk Of Ma400 MG/5 M PO; +NUTRISOURCE FI1 EACH PO; +PREG75 PO; +Promod946 ML PO
[2022-08-22 05:57] VITALS: BP 101/70
== END 2022-08-22 07:10 | disposition home or self-care (01) ==
LOC: ER 01:11
DX: R51.9 Headache, unspecified (principal); R20.0 Anesthesia of skin; H53.9 Unspecified visual disturbance; Z88.8 Allergy status to other drugs, medicaments and biological substances; Z88.5 Allergy status to narcotic agent; Z91.048 Other nonmedicinal substance allergy status; Z79.899 Other long term (current) drug therapy
CPT/HCPCS: 70450; 96374; 96375; 99284-25; J1885; J2765

== ENCOUNTER 2022-10-08 16:53 | Inpatient (IN) | payer OTHER | END 2022-10-27 17:25 | DRG 177 | LOC: ER 16:53 → PCU 21:17 → ICUE 10-09 16:27 → PCU 10-11 17:23 | PROVIDERS: ADMIT Student in an Organized Health Care Education/Training Program | PROC: 4A033R1 Measurement of Arterial Saturation, Peripheral, Percutaneous Approach (ICD-10-PCS; 2022-10-13) | PROC: 05H733Z Insertion of Infusion Device into Right Axillary Vein, Percutaneous Approach (ICD-10-PCS; 2022-10-21) | PROC: 0DH64UZ Insertion of Feeding Device into Stomach, Percutaneous Endoscopic Approach (ICD-10-PCS; principal; 2022-10-25) | PROC: 3E0G76Z Introduction of Nutritional Substance into Upper GI, Via Natural or Artificial Opening (ICD-10-PCS; 2022-10-25) | DX: J69.0 Pneumonitis due to inhalation of food and vomit (principal); G93.41 Metabolic encephalopathy; J96.21 Acute and chronic respiratory failure with hypoxia; R53.2 Functional quadriplegia; T83.511A Infection and inflammatory reaction due to indwelling urethral catheter, initial encounter; N39.0 Urinary tract infection, site not specified; Z16.39 Resistance to other specified antimicrobial drug; E44.0 Moderate protein-calorie malnutrition; E66.2 Morbid (severe) obesity with alveolar hypoventilation; E87.0 Hyperosmolality and hypernatremia; E87.1 Hypo-osmolality and hyponatremia; Z51.5 Encounter for palliative care; G35 Multiple sclerosis; F32.A Depression, unspecified; J15.1 Pneumonia due to Pseudomonas; R13.10 Dysphagia, unspecified; D63.8 Anemia in other chronic diseases classified elsewhere; K59.00 Constipation, unspecified; E87.6 Hypokalemia; E86.0 Dehydration; E83.39 Other disorders of phosphorus metabolism; K80.20 Calculus of gallbladder without cholecystitis without obstruction; K82.8 Other specified diseases of gallbladder; B95.2 Enterococcus as the cause of diseases classified elsewhere; Y84.6 Urinary catheterization as the cause of abnormal reaction of the patient, or of later complication, without mention of misadventure at the time of the procedure; Z20.822 Contact with and (suspected) exposure to COVID-19; G90.4 Autonomic dysreflexia; E87.8 Other disorders of electrolyte and fluid balance, not elsewhere classified; Z79.899 Other long term (current) drug therapy; Z88.8 Allergy status to other drugs, medicaments and biological substances; Z86.718 Personal history of other venous thrombosis and embolism; Z68.26 Body mass index [BMI] 26.0-26.9, adult; Z74.01 Bed confinement status; Z88.5 Allergy status to narcotic agent; Z91.048 Other nonmedicinal substance allergy status; Z79.01 Long term (current) use of anticoagulants ==

== ENCOUNTER 2023-03-04 13:18 | Inpatient (IN) | payer OTHER ==
[~2023-03-04] VITALS: Ht 182.9 cm; Wt 145.2 kg
[~2023-03-04 13:18] MED LIST changes: +ACET325 PT; -B-12500 MC2 PO; +B-12500 MC2 PT; -BACL20 PO; +BACL20 PT; -DULCOLAX400 MG/5 M PO; +DULCOLAX400 MG/5 M PT; -ELIQUIS5 M2 PO; +ELIQUIS5 M2 PT; -FURO40 PO; +FURO40 PT; -Hair, Skin & N1 EACH PO; +Hair, Skin & N1 EACH PT; -KLOR-CON 1010 ME1 PO; +KLOR-CON 1010 ME1 PT; -MIRALAX17 GM PO; +MIRALAX17 GM PT; +ONDA4 PT; -PERIDEX15 ML MM; +PERIDEX15 ML MT
[2023-03-04 14:18] LABS: BASOPHILS ABSOLUTE AUTO 0.04 K/mm3 (0.00-0.23); BASOPHILS PERCENT AUTO 0 % (0-2); EOSINOPHILS PERCENT AUTO 0 % (0-6); Hematocrit 40.6 % (37.0-53.0); Hemoglobin 13.4 g/dL (13.5-17.5); IMMATURE GRAN ABSOLUTE AUTO 0.05 K/mm3 (0.00-0.10); IMMATURE GRAN PERCENT AUTO 0 % (0-1); LYMPHOCYTES ABSOLUTE AUTO 0.69 K/mm3 (0.84-5.20); LYMPHOCYTES PERCENT AUTO 5 % (21-46); MONOCYTES ABSOLUTE AUTO 0.54 K/mm3 (0.16-1.47); MONOCYTES PERCENT AUTO 4 % (4-13); Mean Corpuscular HGB 27.6 pg (26.0-34.0); Mean Corpuscular Volume 84 fL (80-100); Mean Platelet Volume 11.8 fL (9.1-12.4); NEUTROPHILS ABSOLUTE AUTO 14.09 K/mm3 (1.96-9.15); NEUTROPHILS PERCENT AUTO 91 % (41-73); Platelet Count 231 K/mm3 (150-400); RDW Coefficient Variation 16.8 % (11.7-14.2); RDW Standard Deviation 50.4 fL (35.1-46.3); Red Blood Cell Count 4.86 M/mm3 (4.30-5.90); White Blood Cell Count 15.41 K/mm3 (4.00-11.30)
[2023-03-04] MEDS ORDERED: LYRICA20 MG/1 ML PO (14:32)
[2023-03-04] MEDS ORDERED: BUPR75 PO (14:32)
[2023-03-04] MEDS ORDERED: OXYC5 (14:33)
[2023-03-04 14:40] LABS: Albumin, Blood 3.1 g/dL (3.4-5.0); Albumin/Globulin Ratio 0.7 (0.8-1.8); Bilirubin, Total 0.6 mg/dL (0.1-1.0); Bun/Creatinine Ratio 33.6 (12.0-20.0); Creatinine, Blood 0.48 mg/dL (0.60-1.20); Globulin, Blood 4.7 g/dL (2.2-4.0); Potassium, Blood 3.9 mmol/L (3.5-5.5); Total Protein, Blood 7.8 g/dL (6.4-8.2)
[2023-03-04 19:23] VITALS: BP 123/85
[2023-03-04] MEDS ORDERED: NYSTATIN-TRIAMC15 GM PO (20:37)
[2023-03-04] MEDS ORDERED: Fleet Enema132 ML PR (20:38)
[2023-03-04] MEDS ORDERED: ACETAMINOPHEN PT (20:38)
[2023-03-04] MEDS ORDERED: AFRIN15 M6 (20:42)
[2023-03-04] MEDS ORDERED: ALEVAZOL56.7 G1 TOP (20:42)
[2023-03-04] MEDS ORDERED: CONSTULOSE10 GM/15 M PT (20:44)
[2023-03-04] MEDS ORDERED: ALBU90OI INH (20:45)
[2023-03-04] MEDS ORDERED: IPRAT-ALBUT 0.5-3 ML INH (20:46)
[2023-03-04] MEDS ORDERED: LIQUACEL PT (20:46)
--- NOTE | 2023-03-04 21:56 | NUR ---
ADMIT NOTE 42 YR OLD MALE ADMITTED TO FLOOR WITH DX LEFT ARM CELLULITIS. PT QUADROPLEGIC. VOICED FELING IN EXT BUT UNABLE TO MOVE ANY EXT. NOTE APPARENT CONTRACTURES OF ARMS AND LEFT LEG HAS SPLINT/IMMOBILIZER. NOTE PEG TUBE AND SUPRA PUBIC CATH. LEFT ARM/SHOULDER RED AND SOME SWELLING. ORIENTED X 4. ANSWERS QUESTIONS - QUIET/SOFT SPOKEN. RAILS UP X 2 FOR SAFETY. ARMS ELEVATD ON PILLOWS. PT NURSE TO FOLLOW UP WITH SKIN CHECK AND ASSESS WAY PT CAN CONTACT STAFF FOR ASSIST. PT VOICED INABILITY TO USE THE CALL LIGHT. HOB UP TO 60 DEGREES FOR BREATHING
[2023-03-05 05:02] VITALS: BP 105/73
[2023-03-05 05:41] LABS: BASOPHILS ABSOLUTE AUTO 0.04 K/mm3 (0.00-0.23); BASOPHILS PERCENT AUTO 0 % (0-2); EOSINOPHILS ABSOLUTE AUTO 0.01 K/mm3 (0.00-0.68); EOSINOPHILS PERCENT AUTO 0 % (0-6); Hematocrit 41.1 % (37.0-53.0); Hemoglobin 13.9 g/dL (13.5-17.5); IMMATURE GRAN ABSOLUTE AUTO 0.03 K/mm3 (0.00-0.10); IMMATURE GRAN PERCENT AUTO 0 % (0-1); LYMPHOCYTES ABSOLUTE AUTO 1.21 K/mm3 (0.84-5.20); LYMPHOCYTES PERCENT AUTO 12 % (21-46); MONOCYTES ABSOLUTE AUTO 0.59 K/mm3 (0.16-1.47); MONOCYTES PERCENT AUTO 6 % (4-13); Mean Corpuscular HGB 27.9 pg (26.0-34.0); Mean Corpuscular HGB Conc 33.8 g/dL (31.5-36.5); Mean Corpuscular Volume 82 fL (80-100); Mean Platelet Volume 12.1 fL (9.1-12.4); NEUTROPHILS ABSOLUTE AUTO 8.39 K/mm3 (1.96-9.15); NEUTROPHILS PERCENT AUTO 82 % (41-73); Platelet Count 231 K/mm3 (150-400); RDW Coefficient Variation 17.2 % (11.7-14.2); RDW Standard Deviation 50.4 fL (35.1-46.3); Red Blood Cell Count 4.99 M/mm3 (4.30-5.90); White Blood Cell Count 10.27 K/mm3 (4.00-11.30)
[2023-03-05 06:05] LABS: Albumin/Globulin Ratio 0.6 (0.8-1.8); Bilirubin, Total 0.8 mg/dL (0.1-1.0); Bun/Creatinine Ratio 30.5 (12.0-20.0); Calcium, Blood 8.8 mg/dL (8.5-10.1); Creatinine, Blood 0.56 mg/dL (0.60-1.20); Globulin, Blood 4.8 g/dL (2.2-4.0); Potassium, Blood 3.6 mmol/L (3.5-5.5); Total Protein, Blood 7.8 g/dL (6.4-8.2)
[2023-03-05 07:28] VITALS: BP 134/83
[2023-03-05] MEDS ORDERED: SENNA LAXATIVE8.6 MG PT (11:01)
[2023-03-05] MEDS ORDERED: Milk of Magnesia PT (11:02)
[2023-03-05] MEDS ORDERED: B-12500 MC2 PO (11:03)
[2023-03-05] MEDS ORDERED: DOCU100 PT (11:03)
[2023-03-05] MEDS ORDERED: Baclofen20 MG PT (11:15)
[2023-03-05] MEDS ORDERED: OXYC5 PT (11:15)
[2023-03-05] MEDS ORDERED: BUPR75 PO (11:16)
[2023-03-05 15:51] LABS: Vancomycin, Trough 23.3 ug/mL (5.0-10.0)
[2023-03-05 15:59] VITALS: BP 123/81
--- NOTE | 2023-03-05 18:35 | NUR ---
SHIFT SUMMARY PT AOX4, SOFT SPOKEN. MEDICATED FOR PAIN PER THE EMAR. REPOSITIONED THE PT WOULD ALLOW. PG PLACED TODAY IN THE NIVIA. AWAITING DIETARY CONSULT TO BEGIN TUBE FEEDINGS. BOWEL CARE MEDICATIONS ADMINISTERED. PT'S NURSE FROM [facility] WAS AT THE BS TODAY. CALL LIGHT WITHIN REACH, BED IN THE LOWEST POSITION. WILL REPORT TO ONCOMING NURSE.
[2023-03-05 19:29] VITALS: BP 117/74
[2023-03-06 04:07] VITALS: BP 110/74
--- NOTE | 2023-03-06 05:06 | NUR ---
SHIFT SUMMARY PT A&O X4, QUADRAPLEGIC. FREQUENT POSITION CHANGES. PEG TUBE IN PLACE, PT REMAINS NPO. SUPRAPUBIC CATH IN PLACE DRAINING CARLOS URINE. CHANGED DRESSING AND PROVIDED CATH CARE. PT HAD SOME NAUSEA T/O SHIFT, MEDICATED PER EMAR. TELEMETRY: SR @ 97. MEDICATED FOR GENERALIZED PAIN. FREQUENT REPOSITIONING. ENEMA GIVEN THIS SHIFT WITH TWO BM. FREQUENT SUCTIONING DUE TO SECRETIONS. BED KEPT IN LOWEST POSITION. WILL CONTINUE TO MONITOR.
[2023-03-06 05:18] LABS: BASOPHILS ABSOLUTE AUTO 0.04 K/mm3 (0.00-0.23); BASOPHILS PERCENT AUTO 0 % (0-2); EOSINOPHILS ABSOLUTE AUTO 0.08 K/mm3 (0.00-0.68); EOSINOPHILS PERCENT AUTO 1 % (0-6); Hematocrit 36.7 % (37.0-53.0); IMMATURE GRAN ABSOLUTE AUTO 0.03 K/mm3 (0.00-0.10); IMMATURE GRAN PERCENT AUTO 0 % (0-1); LYMPHOCYTES ABSOLUTE AUTO 1.32 K/mm3 (0.84-5.20); LYMPHOCYTES PERCENT AUTO 15 % (21-46); MONOCYTES ABSOLUTE AUTO 0.91 K/mm3 (0.16-1.47); MONOCYTES PERCENT AUTO 10 % (4-13); Mean Corpuscular HGB 27.3 pg (26.0-34.0); Mean Corpuscular HGB Conc 32.7 g/dL (31.5-36.5); Mean Corpuscular Volume 84 fL (80-100); NEUTROPHILS ABSOLUTE AUTO 6.74 K/mm3 (1.96-9.15); NEUTROPHILS PERCENT AUTO 74 % (41-73); Platelet Count 242 K/mm3 (150-400); RDW Standard Deviation 51.7 fL (35.1-46.3); Red Blood Cell Count 4.39 M/mm3 (4.30-5.90); White Blood Cell Count 9.12 K/mm3 (4.00-11.30)
[2023-03-06 05:52] LABS: Albumin, Blood 2.6 g/dL (3.4-5.0); Albumin/Globulin Ratio 0.6 (0.8-1.8); Bilirubin, Total 0.7 mg/dL (0.1-1.0); Bun/Creatinine Ratio 34.1 (12.0-20.0); Calcium, Blood 8.3 mg/dL (8.5-10.1); Creatinine, Blood 0.47 mg/dL (0.60-1.20); Globulin, Blood 4.4 g/dL (2.2-4.0); Potassium, Blood 3.2 mmol/L (3.5-5.5)
[2023-03-06 07:33] VITALS: BP 95/66
[2023-03-06 09:08] VITALS: BP 145/87
--- NOTE | 2023-03-06 15:46 | NUR ---
NOTE: OFFERED PT TUBE FEEDING THAT IS SET FOR 1500, HE SAID THAT HE DID NOT WANT THE FEEDING AT THIS TIME AND WOULD CONSIDER THE 1900 FEEDING. SO HE REFUSED THE 1500 FEEDING STATING HE FEELS TOO FULL.
--- NOTE | 2023-03-06 17:37 | NUR ---
SHIFT SUMMARY PT AOX4, SOFT SPOKEN. TOTAL CARE AND A LIFT PT. G TUBE PATENT AND NOTHING BY MOUTH. MEDICATED FOR PAIN AND NAUSEA PER THE EMAR. REPOSITIONED WHEN THE PT WOULD ALLOW, DIFFICULT FOR HIM TO GET COMFORTABLE. HOME MEDICATIONS REVIEWED BY THE PROVIDER AND RESTARTED PER THE EMAR. PT LIVES AT [facility]. THIS NURSE ATTEMPTED TO TRY TO MAKE THE PT COMFORTABLE POSSIBLE THIS SHIFT BUT IT WAS DIFFICULT. THE PT IS PATIENT AND KIND, WORKS WITH STAFF TO COMMUNICATE HIS NEEDS. CALL LIGHT WITHIN REACH, BED IN THE LOWEST POSITION. WILL REPORT TO ONCOMING NURSE.
[2023-03-06 18:29] VITALS: BP 121/77
[2023-03-06 20:51] VITALS: BP 127/86
--- NOTE | 2023-03-07 04:34 | NUR ---
NOC SHIFT SUMMARY: PATIENT A&O X4. FENTANYL GIVEN FOR PAIN CONTROL. POWER GLIDE IN PLACE. LEFT UPPER ARM CELLULITIS. CONTINUES ON IV ANTIBIOTICS. BED IN LOW POSTION. CALL LIGHT WITHIN REACH.
[2023-03-07 06:09] VITALS: BP 121/76
--- NOTE | 2023-03-07 06:29 | NUR ---
1 CAN OF JEVITY 1.5 GIVEN THIS AM. PATIENT TOLERATED. 100 ML FLUSH BEFORE AND 100 ML FLUSH AFTER.
[2023-03-07 06:54] LABS: Bun/Creatinine Ratio 30.4 (12.0-20.0); Calcium, Blood 8.3 mg/dL (8.5-10.1); Creatinine, Blood 0.4 mg/dL (0.60-1.20); Phosphorus, Blood 1.9 mg/dL (2.5-4.9)
[2023-03-07 08:06] VITALS: BP 104/66
[2023-03-07 10:55] LABS: Vancomycin, Trough 17.5 ug/mL (5.0-10.0)
[2023-03-07 16:56] VITALS: BP 125/81
--- NOTE | 2023-03-07 19:37 | NUR ---
SHIFT SUMMARY PT DIDN'T WANT TO TAKE TUBE FEEDING TIL THIS EVENING. OUTBOUND SALES REPRESENTATIVE HAD SPOKE WITH PT THIS AFTERNOON ABOUT CHANGING THE KIND OF FORMULA USED AND PT AGREEABLE BUT WHEN PT SAID HE WAS HUNGRY AND WANTED FED IT WASN'T HERE YET AND HE DIDN'T WANT TO WAIT SO JEVITY FORMULA THAT WAS AVAILABLE WAS GIVEN PER PT REQUEST. REFUSED TO TAKE ALL HIS MORNING WATER OF 500 AND ONLY ACCEPTED 150ML. REPORTS HE IS FEARFUL HE MAY VOMIT AND NOT BE ABLE TO MAINTAIN HIS AIRWAY. HAS BEEN KEPT AT OR MORE THAN 45 DEGREES MOST OF THE DAY. REPOSITIONED PT ALLOWS.
[2023-03-07 20:24] VITALS: BP 99/70
[2023-03-08 04:26] VITALS: BP 110/68
[2023-03-08 06:28] LABS: Albumin, Blood 2.2 g/dL (3.4-5.0); Albumin/Globulin Ratio 0.5 (0.8-1.8); Bilirubin, Total 0.8 mg/dL (0.1-1.0); Bun/Creatinine Ratio 24.9 (12.0-20.0); Creatinine, Blood 0.4 mg/dL (0.60-1.20); Globulin, Blood 4.1 g/dL (2.2-4.0); Phosphorus, Blood 2.1 mg/dL (2.5-4.9); Potassium, Blood 3.2 mmol/L (3.5-5.5); Total Protein, Blood 6.3 g/dL (6.4-8.2)
--- NOTE | 2023-03-08 06:32 | NUR ---
NOC SHIFT SUMMARY: PT. REPOSITIONED THIS AM WITH RELUCTANCE. PT. REFUSED TO BE TURNED THROUGHOUT SHIFT. OXYCODONE GIVEN THIS AM. BED IN LOW POSITION. CALL LIGHT WITHIN REACH.
[2023-03-08 07:51] VITALS: BP 118/74
[2023-03-08] MEDS ORDERED: BACLOFEN PO (12:43)
[2023-03-08] MEDS ORDERED: BUPR75 PO (12:44)
[2023-03-08] MEDS ORDERED: VISBIOME 112.51 EACH PO (12:46)
[2023-03-08] MEDS ORDERED: FURO20 PO (12:47)
[2023-03-08] MEDS ORDERED: POTA20LUD PO (12:50)
[2023-03-08] MEDS ORDERED: PREG25 PO (12:51)
[2023-03-08] MEDS ORDERED: OXAYDO5 M1 PO (12:52)
[2023-03-08] MEDS ORDERED: PIPERACIL-TAZO4.5 G1 IV (12:52)
--- NOTE | 2023-03-08 14:06 | NUR ---
DISCHARGE SUMMARY PATIENT IS ALERT AND ORIENTED. PATIENT HAS HAD NO ACUTE EVENTS THIS SHIFT. VITAL SIGNS REVIEWED. PATIENT HAS BEEN TREATED FOR PAIN THIS SHIFT. PATIENT HAS HAD A BOWEL MOVEMENT THIS SHIFT. PATIENT HAS NOT HAD AND SOB, OR VOMITTING THIS SHIFT. PATIENT REPORTED NAUSEA AFTER TUBE FEEDINGS, MEDICATED PER EMAR. PATIENT DID NOT RECEIVE THE 1200 TUBE FEEDING, PATIENT STATED "IM FULL AND TRY AGAIN LATER" PATIENT IS BEING TRANSFERED BACK TO [facility]. TRANSPORT PICKED UP PATIENT AT 1400.
--- NOTE | 2023-03-08 14:28 | NUR ---
NURSE NOTE ATTEMPTED TO GIVE REPORT. NURSE WAS BUSY, ASKED THEM TO CALL BACK.
== END 2023-03-08 13:59 | DRG 871 ==
LOC: ER 13:18 → MEDS 16:43 → ENPENDDIS 03-08 13:48 → MEDS 03-08 13:59
PROVIDERS: Emergency Medicine; Internal Medicine; ADMIT Internal Medicine
DX: A41.9 Sepsis, unspecified organism (principal); G82.50 Quadriplegia, unspecified; L03.116 Cellulitis of left lower limb; K94.22 Gastrostomy infection; L02.412 Cutaneous abscess of left axilla; R74.01 Elevation of levels of liver transaminase levels; F32.A Depression, unspecified; K59.09 Other constipation; G35 Multiple sclerosis; D64.9 Anemia, unspecified; G89.29 Other chronic pain; E87.6 Hypokalemia; E83.39 Other disorders of phosphorus metabolism; M62.838 Other muscle spasm; Y83.8 Other surgical procedures as the cause of abnormal reaction of the patient, or of later complication, without mention of misadventure at the time of the procedure; Z88.8 Allergy status to other drugs, medicaments and biological substances; Z86.718 Personal history of other venous thrombosis and embolism; Z79.01 Long term (current) use of anticoagulants; Z74.01 Bed confinement status; Z79.891 Long term (current) use of opiate analgesic; Z87.891 Personal history of nicotine dependence; Z98.890 Other specified postprocedural states; Z87.01 Personal history of pneumonia (recurrent)
CPT/HCPCS: 36415; 73201; 80048; 80053; 80202; 82947; 83605; 83735; 83880; 84100; 85025; 87040; 93971; 96365; 96366; 96376; 99285-25; A9270; C1751; J1940; J2405; J2543; J3010; J3370; J7030; J7050; J7060; Q9967